=== PATIENT | male | born 1985 | race Caucasian/White ===

== ENCOUNTER → 2017-12-19 09:06 | Outpatient (CLI) | payer MEDICAID, SELFPAY ==
[2017-12-19 13:39] LABS: Absolute Lymphocyte Count 1.72 X10^3/ul (0.83-4.51); Absolute Neutrophil Count 2.6 X10^3/uL (2.0-7.7); Basophil# 0.02 X10^3/uL; Basophil% 0.4 % (0-1); Eosinophil# 0.18 X10^3/uL; Eosinophils% 3.8 % (0-5); Hematocrit 47.8 % (40-54); Hemoglobin 16.1 g/dl (13.0-16.5); Lymphocyte # 1.72 X10^3/ul (4.0); Lymphocyte % 36.7 % (19-41); Mean Corp Hgb Conc 33.7 g/gl (32-36); Mean Corpuscular Hgb 29.5 pg (27.0-32.0); Mean Corpuscular Volume 87.5 fL (80-94); Mean Platelet Vol. 11.7 fl (6.2-12.0); Monocyte# 0.21 X10^3/uL; Monocyte% 4.5 % (0-10); Neutrophil # 2.55 X10^3/uL (2.7-7.7); Neutrophil % 54.4 % (47-70); Platelet Count 229 K/mm3 (150-450); RBC Distribution Width CV 12.9 % (11.6-14.6); RBC Distribution Width SD 40.7 fl (35.1-43.9); Red Blood Count 5.46 M/mm3 (4.6-6.2); White Blood Count 4.7 K/mm3 (4.4-11.0)
[2017-12-19 13:43] LABS: POSITIVE COUNT NO; POSITIVE DIFFERENTIAL NO; POSITIVE MORPHOLOGY NO
[2017-12-19 14:01] LABS: AST(SGOT) 23 U/L (15-37); Alanine Aminotransfer ALT/SGPT 52 U/L (16-61); Albumin, Serum 3.9 g/dL (3.2-5.0); Alkaline Phosphatase 79 U/L (45-117); Anion Gap 8 (5-15); BUN 17 mg/dL (7-18); BUN/Creat Ratio 24.5 RATIO (10-20); Calcium,Total 8.9 mg/dL (8.5-10.1); Chloride 101 mmol/L (98-107); Creatinine, Serum 0.69 mg/dL (0.70-1.30); EST Glomerular Filtration Rate 142 mL/min (>60); Est Glom Filt Rate - Afr Amer 171 mL/min (>60); Globulin 3.9 g/dL (2.2-4.2); Glucose 101 mg/dL (74-106); Potassium 3.9 mmol/L (3.5-5.1); Protein, Total 7.8 g/dL (6.4-8.2); Sodium Level 137 mmol/L (136-145); Thyroid Stim Hormone (TSH) 2.24 uIU/mL (0.358-3.74)
== END ==
PROVIDERS: Visit Provider Family Medicine Geriatric Medicine
DX: R53.83 Other fatigue (principal)
CPT/HCPCS: 36415; 80053; 84443; 85025

== ENCOUNTER 2018-01-03 06:48 | Day surgery (SDC) | payer MEDICAID, SELFPAY ==
--- NOTE | 2018-01-03 | IMM_PTH ---
PATIENT: AMITA DANIELS LOC: EN U#:[id number] AGE/SX: 32/M ROOM: RE01/03/[address]: Dr. Tank Casey MD : 1985 BED: DIS: 01/03/2018 SPEC #: [id number] RECD: 01/15/18 10:40 STATUS: NILSA RERojelio #: [id number] KAILA: 01/03/18 00:[address]: Tank Casey DEPT: IMMUNOHISTOCHEMISTRY RECD BY: Alondra Marquez ENTERED: 01/15/18 10:41 SP TYPE: IMMUNO OTHR DR: Dr. Lester Jose MD Tissues: A - Stomach, NOS Procedures: H Pylori (initial) PHYSICIAN & INSTITUTION [place] [address] SPECIMEN INFORMATION: Tissue Source: A ? Gastric antrum Clinical Info: GERD Specimen Number: [id number] CPT code: 60645 METHODOLOGY: Deparaffinized sections of prefer/formalin-fixed tissue or PAP/DQ stained slides are incubated with monoclonal/polyclonal antibodies/oligonucleotide probes. Localization is made via biotin free immunoperoxidase method. Appropriate controls are performed and reacted as expected. Results on target cell population are indicated in the following table: RESULTS: ANTIBODY / CLONE RESULT Block A H Pylori (polyclonal) negative These tests were developed and their performance characteristics determined by [facility]. They may not have been cleared or approved by the U.S. Food and Drug Administration. The FDA has determined that such clearance or approval is not necessary. INTERPRETATION: A. Gastric antrum, biopsy: Negative for Helicobacter pylori organisms. AM:bandar 01/15/18
[2018-01-03 07:03] VITALS: BP 141/65; PULSE 66; RESP 18; TEMP 36.4; O2SAT 99; BMI 27.4
--- NOTE | 2018-01-03 08:16 | GASB_PTH ---
PATIENT: AMITA DANIELS LOC: EN U#:[id number] AGE/SX: 32/M ROOM: RE01/03/[address]: Dr. Tank Casey MD : 1985 BED: DIS: 01/03/2018 SPEC #: [id number] RECD: 01/03/18 11:32 STATUS: NILSA DONNELL #: [id number] KAILA: 01/03/18 08:[address]: Tank Casey DEPT: SURGICAL PATHOLOGY RECD BY: Trae Romeo ENTERED: 01/03/18 11:33 SP TYPE: Gastric Bx OTHR DR: Dr. Lester Jose MD Tissues: A - Gastric mucous membrane B - Gastric mucous membrane Procedures: Special Stain Group II Surgery Specimen Level IV Alcian Blue/PAS (control) HEADER OPERATION: EGD with biopsy PRE-OP DIAGNOSIS: GERD TISSUE SUBMITTED: A - Biopsy gastric antrum, H. pylori, B - Biopsy GE junction MICROSCOPIC DIAGNOSIS A. Gastric antrum, biopsy: Mild chronic gastritis. Focal intestinal metaplasia. B. 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 No evidence of dysplasia. AM:bandar 01/06/18 COMMENT A. The results of immunohistochemistry for Helicobacter pylori will be reported separately ([id number]). A & B. Alcian blue/PAS stain with matched control confirms the presence of focal intestinal metaplasia. There is no evidence of dysplasia. Case has been reviewed in consultation with Dr. Vega who concurs with the above diagnosis. IDC:[email or web address] MICROSCOPIC DESCRIPTION Slides are reviewed. GROSS DESCRIPTION A - Received in fixative is one container labeled with the patient's name and designated gastric antrum. The specimen consists of multiple irregular fragments of light yo soft tissue that in aggregate measure 0.5 x 0.5 x 0.1 cm. The specimen is totally submitted in one cassette. B - Received in fixative is one container labeled with the patient's name and designated biopsy, GE junction. The specimen consists of multiple irregular fragments of light yo soft tissue that in aggregate measure 1 x 0.3 x 0.1 cm. The specimen is totally submitted in one cassette. / NATALIIA:bandar 01/03/18 TC:3 CPT: 83341 x2, 55760 x2
[2018-01-03 08:30] VITALS: BP 113/71; BP 141/65; PULSE 77; RESP 16; TEMP 35.8; O2SAT 95
[2018-01-03 08:35] VITALS: BP 110/68; BP 141/65; PULSE 68; RESP 18; O2SAT 94
[2018-01-03 08:40] VITALS: BP 110/66; BP 141/65; PULSE 67; RESP 18; O2SAT 94
--- NOTE | 2018-01-03 08:44 | OP.PCM_ITS ---
Problem List (1) Gastroesophageal reflux disease Status: Chronic Qualifiers: Esophagitis presence: with esophagitis Report of Operation Date of Procedure: 01/03/18 Pre-Operative Diagnosis: GERD Post-Operative Diagnosis: GERD with esophagitis and shortened esophagus Surgery/Procedure Performed:: EGD with biopsies Description of Surgical Findings:: The patient had severe esophagitis. Patient also has a sliding hiatal hernia. The diaphragm was 35 cm from the incisors. The GE junction appeared to be 26 cm from the incisors. Specimen's removed: 1. Antral biopsy. 2. GE junction biopsy Description of Procedure: The major risks and benefits associated with the procedure were explained to the patient in detail. The patient verbalized understanding and agreement with the same. The patient was then placed in the left lateral decubitus position. IV sedation was started by anesthesia. The endoscope was then advanced under direct visualization over the tongue, into the esophagus , stomach and duodenum. It was slowly withdrawn and the mucosa was carefully evaluated. Duodenal mucosal abnormalities were not visualized. Antegrade and retrograde views of the stomach were normal and did not reveal ulceration. The patient's PEG tube was in good position and appeared normal surrounding it. Gastric folds were normal. A biopsy of the antrum was performed with cold forceps. The patient had a sliding hiatal hernia. The diaphragm pinched the stomach at around 35 cm. The beginning of the GE junction appeared around 26 cm. There is severe esophagitis and this was biopsied with cold forceps. 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 Careful examination of the remainder of the esophagus was normal. The scope was then withdrawn from the patient and the procedure terminated. It was well tolerated and there were no immediate complications. As the patient had clear esophagitis I did not elect to place a pH probe as originally planned. I believe the patient needs to stay on his PPI. If the family wishes to pursue surgical treatment the patient would likely need a Danial gastroplasty due to his very shortened esophagus. This would need to be done at a tertiary care center.
[2018-01-03 08:47] VITALS: BP 110/75; BP 141/65; PULSE 76; RESP 18; TEMP 35.8; O2SAT 98
[2018-01-03 09:15] VITALS: BP 141/65
== END 2018-01-03 09:30 | disposition home or self-care (01) ==
LOC: EN 06:49 → AC 06:50
PROVIDERS: Family Provider Family Medicine Geriatric Medicine; PCP Family Medicine Geriatric Medicine; Visit Provider Surgery
PROC: (CPT 43239; principal; 2018-01-03 07:30)
DX: K21.0 Gastro-esophageal reflux disease with esophagitis (principal); K22.70 Barrett's esophagus without dysplasia; K44.9 Diaphragmatic hernia without obstruction or gangrene; Q39.8 Other congenital malformations of esophagus; K29.50 Unspecified chronic gastritis without bleeding; R56.9 Unspecified convulsions; Z79.899 Other long term (current) drug therapy; Z93.1 Gastrostomy status; Z87.820 Personal history of traumatic brain injury; Z96.649 Presence of unspecified artificial hip joint
CPT/HCPCS: 43239; 88305; 88313; 88342; J7120

== ENCOUNTER → 2018-04-03 08:09 | Outpatient (CLI) | payer MEDICAID, SELFPAY ==
[2018-04-03 09:13] LABS: Absolute Lymphocyte Count 2.47 X10^3/ul (0.83-4.51); Basophil# 0.02 X10^3/uL; Basophil% 0.4 % (0-1); Eosinophil# 0.23 X10^3/uL; Eosinophils% 4.6 % (0-5); Hematocrit 47.1 % (40-54); Hemoglobin 16.3 g/dl (13.0-16.5); Lymphocyte # 2.47 X10^3/ul (4.0); Lymphocyte % 49.3 % (19-41); Mean Corp Hgb Conc 34.6 g/gl (32-36); Mean Corpuscular Hgb 29.3 pg (27.0-32.0); Mean Corpuscular Volume 84.6 fL (80-94); Mean Platelet Vol. 12.1 fl (6.2-12.0); Monocyte# 0.26 X10^3/uL; Monocyte% 5.2 % (0-10); Neutrophil # 2.02 X10^3/uL (2.7-7.7); Neutrophil % 40.3 % (47-70); Platelet Count 209 K/mm3 (150-450); RBC Distribution Width CV 12.5 % (11.6-14.6); RBC Distribution Width SD 38.7 fl (35.1-43.9); Red Blood Count 5.57 M/mm3 (4.6-6.2)
[2018-04-03 09:17] LABS: POSITIVE COUNT NO; POSITIVE DIFFERENTIAL NO; POSITIVE MORPHOLOGY NO
[2018-04-03 09:27] LABS: AST(SGOT) 24 U/L (15-37); Alanine Aminotransfer ALT/SGPT 47 U/L (16-61); Alkaline Phosphatase 76 U/L (45-117); Anion Gap 7 (5-15); BUN 19 mg/dL (7-18); BUN/Creat Ratio 26.5 RATIO (10-20); Calcium,Total 9.3 mg/dL (8.5-10.1); Chloride 106 mmol/L (98-107); Creatinine, Serum 0.72 mg/dL (0.70-1.30); EST Glomerular Filtration Rate 136 mL/min (>60); Est Glom Filt Rate - Afr Amer 165 mL/min (>60); Globulin 3.9 g/dL (2.2-4.2); Glucose 82 mg/dL (74-106); Potassium 4.3 mmol/L (3.5-5.1); Protein, Total 7.9 g/dL (6.4-8.2); Sodium Level 142 mmol/L (136-145)
[2018-04-06 10:28] LABS: Lamotrigine (Lamictal) Level 4.6 ug/mL (2.0-20.0)
== END ==
PROVIDERS: Family Provider Family Medicine Geriatric Medicine; PCP Family Medicine Geriatric Medicine; Visit Provider Psychiatry & Neurology Neurology
DX: G40.319 Generalized idiopathic epilepsy and epileptic syndromes, intractable, without status epilepticus (principal)
CPT/HCPCS: 36415; 80053; 82542; 85025

== ENCOUNTER → 2018-04-16 09:28 | Outpatient (CLI) | payer MEDICAID, SELFPAY ==
[2018-04-16 10:48] LABS: Absolute Lymphocyte Count 2.16 X10^3/ul (0.83-4.51); Basophil# 0.01 X10^3/uL; Basophil% 0.2 % (0-1); Eosinophil# 0.19 X10^3/uL; Eosinophils% 4.1 % (0-5); Hemoglobin 16.2 g/dl (13.0-16.5); Lymphocyte # 2.16 X10^3/ul (4.0); Lymphocyte % 46.7 % (19-41); Mean Corp Hgb Conc 34.5 g/gl (32-36); Mean Corpuscular Hgb 29.2 pg (27.0-32.0); Mean Corpuscular Volume 84.8 fL (80-94); Mean Platelet Vol. 11.8 fl (6.2-12.0); Monocyte% 6.5 % (0-10); Neutrophil # 1.97 X10^3/uL (2.7-7.7); Neutrophil % 42.5 % (47-70); Platelet Count 220 K/mm3 (150-450); RBC Distribution Width CV 12.7 % (11.6-14.6); RBC Distribution Width SD 39.3 fl (35.1-43.9); Red Blood Count 5.54 M/mm3 (4.6-6.2); White Blood Count 4.6 K/mm3 (4.4-11.0)
[2018-04-16 10:49] LABS: POSITIVE COUNT NO; POSITIVE DIFFERENTIAL NO; POSITIVE MORPHOLOGY NO
[2018-04-16 11:10] LABS: Albumin, Serum 4.1 g/dL (3.2-5.0); Anion Gap 9 (5-15); BUN 16 mg/dL (7-18); BUN/Creat Ratio 21.5 RATIO (10-20); Calcium,Total 9.3 mg/dL (8.5-10.1); Chloride 105 mmol/L (98-107); Creatinine, Serum 0.74 mg/dL (0.70-1.30); EST Glomerular Filtration Rate 130 mL/min (>60); Est Glom Filt Rate - Afr Amer 158 mL/min (>60); Glucose 88 mg/dL (74-106); Potassium 4.1 mmol/L (3.5-5.1); Prealbumin 32.4 mg/dL (20.0-40.0); Sodium Level 142 mmol/L (136-145); Thyroid Stim Hormone (TSH) 1.79 uIU/mL (0.358-3.74)
== END ==
PROVIDERS: Family Provider Family Medicine Geriatric Medicine; PCP Family Medicine Geriatric Medicine; Visit Provider Family Medicine Geriatric Medicine
DX: R63.4 Abnormal weight loss (principal)
CPT/HCPCS: 36415; 80048; 82040; 84134; 84443; 85025

== ENCOUNTER 2018-06-16 13:38 | Outpatient (RCR) | payer MEDICAID, SELFPAY ==
--- NOTE | 2018-06-16 14:55 | HP.PTEVAL ---
Patient's Visit Information JAKE DANIELS is a 33 year old M referred to Physical Therapy by Lester Jose with a diagnosis of TBI. Date of Evaluation: 06/16/18 Physical Therapist: Yumiko Whittington - Subjective Subjective: Patient is currently in a chair that is 5 years old- The chair is wearing out and they are piecing things together and is just not safe in the current chair. Has been in a w/c since he was 4 years ago- medical diagnosis of TBI. Lives with family- 2 story home but is only on the single story- ramp to get in/out. Transfers are done through tracts in the ceiling (bathroom, bedroom, living room). Does not help with transfers dependent assist. 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 Transportation with a ramp in van. Sleeps on a mat on the floor in the living room- starts on his side and sits up/tall kneel depending on how his acid reflux is. 2-3 hours in the chair and then on the mat on the floor. The lift can get low enough to get him on the floor. Fully dependent on mother for ADL's. Goes to the workshop saturday through Saturday. Had a sore on his heel when he was 14- Shifts a lot on the mat but is unable to do that in the chair. Guess that he is 5'4- and weighs 118 lbs. Mother feeds him and he has a G-tube. Can be aggressive- needs to be strapped into his seat. Hard to read pain so mother is unsure if he has pain. PMHx: seizures, hip dysplasia 14 years old. Meds: no changes since last. - Objective Jake is a 33 year male referred to PT by for w/c positioning evaluation. Jake attends today with his mother who is his primary caregiver. Jake is currently in a tilt in space w/c that is not meeting his current needs. While seated in the chair Jake has poor posture- forward head and is shoving right hand into his mouth using her left hand. ROM: Ankle: AFO's Knee: flexion contracture approx 40 degrees. Hip: flexion contracture approx 70 degrees. Core: fair, Right UE: does not use/raise- elbow flexion: WFL extn: 40 degrees from neutral. Left UE full mobility. Cervical Spine: full mobility. He is unable to obtain and maintain sitting position without max A from caregiver/PT. Hips are spaced in chair with adductor padding and legs are secured with LE supports. Jake is unable to weight shift without max A from caregivers or dependent on lift system. Jake does not ambulate and wears AFO bilateral LE and right elbow extension brace. Strength: LE: 2+/5 throughout Shoulder: Left: 4+/5, Right: 2+/5 - Goals Goal 1:: Patient to obtain a proper fitted w/c - Rehabilitation Potential Physical Therapy Diagnosis: Patient presents with hypomobility - Anticipated Interventions Thank you for the opportunity to evaluate your patient. For Medicare and Medicare HMO plans, please review the plan of care and approve it. It will need to be FAXED BACK to us at [phone] for Medicare purposes. Please let me know if there are questions or concerns regarding this plan of care. Physician Signature: Date:
--- NOTE | 2018-07-29 10:17 | HP.PT.NRP ---
HP - Discharge Summary (1) - Patient Information AMITA DANIELS was seen in my office for initial evaluation on 06/16/18. The following Plan of Care was established for this patient: This patient was last seen in our office . Pertinent comments regarding their Physical therapy will appear below: At this point I will be discontinuing this patient from physical therapy. I would be happy to see this patient again in the future if found appropriate by the physician. Thank you! Yumiko Whittington
== END 2018-06-16 19:00 | disposition home or self-care (01) ==
LOC: PT 13:38
PROVIDERS: Family Provider Family Medicine Geriatric Medicine; PCP Family Medicine Geriatric Medicine; Visit Provider Family Medicine Geriatric Medicine
DX: S06.890D Other specified intracranial injury without loss of consciousness, subsequent encounter (principal)
CPT/HCPCS: 97162

== ENCOUNTER 2018-07-07 08:49 | Outpatient (RCR) | payer MEDICAID, SELFPAY | END 2018-07-20 23:59 | LOC: NS 08:49 | PROVIDERS: Family Provider Family Medicine Geriatric Medicine; PCP Family Medicine Geriatric Medicine; Visit Provider Family Medicine Geriatric Medicine | DX: K29.70 Gastritis, unspecified, without bleeding (principal); S06.890A Other specified intracranial injury without loss of consciousness, initial encounter | CPT/HCPCS: 97802 ==

== ENCOUNTER 2018-08-06 13:19 | Outpatient (RCR) | payer MEDICAID, SELFPAY | END 2018-08-20 23:59 | LOC: NS 13:19 | PROVIDERS: Family Provider Family Medicine Geriatric Medicine; PCP Family Medicine Geriatric Medicine; Visit Provider Family Medicine Geriatric Medicine | DX: K29.70 Gastritis, unspecified, without bleeding (principal); S06.890A Other specified intracranial injury without loss of consciousness, initial encounter; Z71.3 Dietary counseling and surveillance | CPT/HCPCS: 97803 ==

== ENCOUNTER 2018-09-26 11:13 | Outpatient (RCR) | payer MEDICAID, SELFPAY | END 2018-10-20 23:59 | LOC: NS 11:13 | PROVIDERS: Family Provider Family Medicine Geriatric Medicine; PCP Family Medicine Geriatric Medicine; Visit Provider Family Medicine Geriatric Medicine | DX: K29.70 Gastritis, unspecified, without bleeding (principal); S06.890A Other specified intracranial injury without loss of consciousness, initial encounter; Z71.3 Dietary counseling and surveillance | CPT/HCPCS: 97803 ==

== ENCOUNTER 2018-12-15 13:30 | Outpatient (RCR) | payer MEDICAID, SELFPAY | END 2018-12-18 23:59 | LOC: NS 13:30 | PROVIDERS: Family Provider Family Medicine Geriatric Medicine; PCP Family Medicine Geriatric Medicine; Visit Provider Family Medicine Geriatric Medicine | DX: K29.70 Gastritis, unspecified, without bleeding (principal); S06.890A Other specified intracranial injury without loss of consciousness, initial encounter; Z71.3 Dietary counseling and surveillance | CPT/HCPCS: 97803 ==

== ENCOUNTER 2019-01-16 09:53 | Day surgery (SDC) | payer MEDICAID, SELFPAY ==
[2019-01-16] VITALS (7 sets, daily range): BP systolic 90–127; BP diastolic 59–83; PULSE 61–91; RESP 16–18; TEMP 36.3–36.5; O2SAT 95–100; BMI 21.8
--- NOTE | 2019-01-16 | GASB_PTH ---
PATIENT: AMITA DANIELS LOC: EN U#:[id number] AGE/SX: 33/M ROOM: RE01/16/[address]: Dr. Tank Casey MD : 1985 BED: DIS: 01/16/2019 SPEC #: [id number] RECD: 01/16/19 14:25 STATUS: NILSA DONNELL #: [id number] KAILA: 01/16/19 00:[address]: Tank Casey DEPT: SURGICAL PATHOLOGY RECD BY: Trae Romeo ENTERED: 01/16/19 14:25 SP TYPE: Gastric Bx OTHR DR: Dr. Lester Jose MD Tissues: Gastric mucous membrane Procedures: Surgery Specimen Level IV HEADER OPERATION: EGD ([facility] [place]) PRE-OP DIAGNOSIS: Mistry's TISSUE SUBMITTED: GE junction biopsy MICROSCOPIC DIAGNOSIS Gastroesophageal junction, biopsy: Intestinal metaplasia consistent with Mistry's esophagus. No evidence of dysplasia. Mild chronic inflammation. See comment. AM:bandar 01/19/19 COMMENT Alcian blue/PAS stain with matched control supports the above diagnosis. Immunohistochemistry ([id number]) supports the above diagnosis. MICROSCOPIC DESCRIPTION Slides are reviewed. GROSS DESCRIPTION Received in fixative is one container labeled with the patient's name and designated GE junction biopsy. The specimen consists of multiple irregular fragments of light yo soft tissue that in aggregate measure 1 x 0.3 x 0.1 cm. The specimen is totally submitted in one cassette. / SJ:bandar 01/16/19 TC:3 CPT: 49529
--- NOTE | 2019-01-16 | IMM_PTH ---
PATIENT: AMITA DANIELS LOC: EN U#:[id number] AGE/SX: 33/M ROOM: RE01/16/[address]: Dr. Tank Casey MD : 1985 BED: DIS: 01/16/2019 SPEC #: [id number] RECD: 01/19/19 12:54 STATUS: NILSA RERojelio #: [id number] KAILA: 01/16/19 00:[address]: Tank Casey DEPT: IMMUNOHISTOCHEMISTRY RECD BY: Alondra Marquez ENTERED: 01/19/19 12:56 SP TYPE: IMMUNO OTHR DR: Dr. Lester Jose MD Tissues: Gastric mucous membrane Procedures: P53 (initial) PHYSICIAN & INSTITUTION [place] [id number] SPECIMEN INFORMATION: Tissue Source: GE junction biopsy Clinical Info: Mistry's Specimen Number: [id number] CPT code: 93214 METHODOLOGY: Deparaffinized sections of prefer/formalin-fixed tissue or PAP/DQ stained slides are incubated with monoclonal/polyclonal antibodies/oligonucleotide probes. Localization is made via biotin free immunoperoxidase method. Appropriate controls are performed and reacted as expected. Results on target cell population are indicated in the following table: RESULTS: ANTIBODY / CLONE RESULT P53 (DO-7) negative These tests were developed and their performance characteristics determined by [facility]. They may not have been cleared or approved by the U.S. Food and Drug Administration. The FDA has determined that such clearance or approval is not necessary. INTERPRETATION: Gastroesophageal junction, biopsy: No evidence of dysplasia. AM:bandar 01/20/19
--- NOTE | 2019-01-16 12:14 | OP.ENDO_ITS ---
01/16/2019 Lester Jose MD [address] [place] [address] Re : Upper GI endoscopy procedure for Jake Delcid Dear Dr. Jose This procedure was performed on Wednesday, January 16, 2019. My impressions and recommendations are as follows: Impressions : - Mistry's esophagus. Biopsied. - 10 cm hiatal hernia. - Z-line regular, 27 cm from the incisors. - The examination was otherwise normal. Recommendations : - Discharge patient to home. - Resume previous diet. - Continue present medications. - Await pathology results. - Repeat upper endoscopy in 3 years for surveillance. My findings are described in the full procedure note, which is enclosed. If I can be of further assistance, please feel free to contact me at Doctor phone number(s): , Work: . Sincerely, Tank Casey MD 01/16/2019 12:13:30 PM This report has been signed electronically.
== END 2019-01-16 13:30 | disposition home or self-care (01) ==
LOC: EN 09:54 → AC 09:55
PROVIDERS: Family Provider Family Medicine Geriatric Medicine; PCP Family Medicine Geriatric Medicine; Referring Provider Surgery; Visit Provider Surgery
PROC: 0DJ08ZZ Inspection of Upper Intestinal Tract, Via Natural or Artificial Opening Endoscopic (ICD-10-PCS; CPT 43235; principal; 2019-01-16 10:55)
DX: K22.70 Barrett's esophagus without dysplasia (principal); K44.9 Diaphragmatic hernia without obstruction or gangrene; K21.0 Gastro-esophageal reflux disease with esophagitis; R56.9 Unspecified convulsions; G80.9 Cerebral palsy, unspecified; R15.9 Full incontinence of feces; R32 Unspecified urinary incontinence; F79 Unspecified intellectual disabilities; Z79.899 Other long term (current) drug therapy; Z87.820 Personal history of traumatic brain injury
CPT/HCPCS: 43239; 88305; 88342; J7120

== ENCOUNTER 2019-01-27 14:38 | Outpatient (RCR) | payer MEDICAID, SELFPAY ==
--- NOTE | 2018-12-24 08:36 | NS ---
12/24/18 Phone f/u w/MomYaent On 12/19/18 Mom called me reporting family had decided to stop 2nd IsoSource 1.5 250 mL feeding provided at [facility] - siting that increased urination requiring change of clothing twice daily was more than what family was willing to manage. Mom reportedly had discussed with nurses at [facility] and all felt Jake had regained desired weight with 3 feedings of IsoSource 1.5 totalling 700 cc/day (providing 1050 calories and 47.6 g protein plus oral feeds providing ~ 400 calories and 10 grams protein). Today, I discussed same feeding situation with Mom noting that protein and perhaps vitamins and minerals may be suboptimal for Jake. I encouraged Mom to increase dietary protein to 20 grams/day - discussed options of securing whey protein powder at local pharmacy and add 1 scoop each feeding to pureed oral feeds or be sure each feeding includes 1-1 1/2 [address]. protein. RDN also suggested consideration of liquid MVM to be given via g-tube. RDN also reminded Mom to increase water flushes to 300 cc/feeding. Changed feeding schedule will provide ~ 1500 leticia/day and 58-65 grams protein/day and `1400 CC WATER/day. Will follow in 2 weeks with in office visit, pending family not cancelling appt. Brenda Duron, GERDA,LD,CDE
[2019-01-16 10:10] VITALS: BMI 21.8
== END 2019-01-27 23:59 | disposition home or self-care (01) ==
LOC: NS 14:38
PROVIDERS: Family Provider Family Medicine Geriatric Medicine; PCP Family Medicine Geriatric Medicine; Visit Provider Family Medicine Geriatric Medicine
DX: K29.70 Gastritis, unspecified, without bleeding (principal); S06.890A Other specified intracranial injury without loss of consciousness, initial encounter; Z71.3 Dietary counseling and surveillance
CPT/HCPCS: 97803

== ENCOUNTER → 2019-12-28 11:50 | Outpatient (CLI) | payer MEDICAID, SELFPAY ==
[2019-01-16 10:10] VITALS: BMI 21.8
[2019-12-28 12:22] LABS: Absolute Lymphocyte Count 1.74 X10^3/uL (0.83-4.51); Absolute Neutrophil Count 2.7 X10^3/uL (2.0-7.7); Basophil# 0.03 X10^3/uL; Basophil% 0.6 % (0-1); Eosinophil# 0.12 X10^3/uL; Eosinophils% 2.4 % (0-5); Hematocrit 47.1 % (40-54); Hemoglobin 15.6 g/dL (13.0-16.5); Lymphocyte # 1.74 X10^3/ul (4.0); Lymphocyte % 35.5 % (19-41); Mean Corp Hgb Conc 33.1 g/dL (32-36); Mean Corpuscular Hgb 28.5 pg (27.0-32.0); Mean Corpuscular Volume 86.1 fL (80-94); Mean Platelet Vol. 13.2 fl (6.2-12.0); Monocyte# 0.32 X10^3/uL; Monocyte% 6.5 % (0-10); NRBC Flagged by Analyzer 0 % (0-5); Neutrophil # 2.68 X10^3/uL (2.7-7.7); Neutrophil % 54.8 % (47-70); Platelet Count 190 K/mm3 (150-450); RBC Distribution Width CV 12.6 % (11.6-14.6); RBC Distribution Width SD 39.4 fl (35.1-43.9); Red Blood Count 5.47 M/mm3 (4.6-6.2); White Blood Count 4.9 K/mm3 (4.4-11.0)
[2019-12-28 12:47] LABS: ALB/GLOB Ratio 1.1 RATIO (0.9-2.4); AST(SGOT) 33 U/L (15-37); Alanine Aminotransfer ALT/SGPT 76 U/L (16-61); Alkaline Phosphatase 81 U/L (45-117); Anion Gap 8 (5-15); BUN 18 mg/dL (7-18); BUN/Creat Ratio 26.2 RATIO (10-20); Chloride 104 mmol/L (98-107); Creatinine, Serum 0.69 mg/dL (0.70-1.30); EST Glomerular Filtration Rate 141 mL/min (>60); Est Glom Filt Rate - Afr Amer 171 mL/min (>60); Globulin 3.7 g/dL (2.2-4.2); Glucose 117 mg/dL (74-106); Potassium 3.9 mmol/L (3.5-5.1); Protein, Total 7.7 g/dL (6.4-8.2); Sodium Level 141 mmol/L (136-145); Thyroid Stim Hormone (TSH) 2.56 uIU/mL (0.358-3.74)
== END ==
PROVIDERS: PCP Family Medicine Geriatric Medicine; Visit Provider Family Medicine Geriatric Medicine
DX: R53.83 Other fatigue (principal)
CPT/HCPCS: 36415; 80053; 84443; 85025

== ENCOUNTER 2020-11-24 08:26 | Emergency (ER) | payer MEDICAID, SELFPAY ==
[2019-01-16 10:10] VITALS: BMI 21.8
[2020-11-24 08:27] VITALS: BP 116/87; PULSE 88; RESP 18; TEMP 35.9; O2SAT 96; BMI 22.3
--- NOTE | 2020-11-24 08:42 | ED.VIS.GEN ---
History of Present Illness Chief Complaint: Other, Pain/Inj Narrative: Patient pulled his G-tube overnight and mom was unable to replace it. He has a history of this, he has had the same tract for over 30 years per mom. 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 Otherwise patient has been acting himself. Past medical history: MRDD Medications: Reviewed Social history: Lives at home, family takes care of him. Review of systems: All systems negative except as indicated General: No reported fevers ENT: No recent rhinorrhea Cardiovascular: No history of cyanosis Respiratory: No breathing difficulty Gastrointestinal: G-tube being pulled out Musculoskeletal: Denies: Chronic weakness Skin: No rash Neurological: No new deficit Psych: Reports: Behavioral issues as in HPI Physical exam General: MRDD patient who does not appear in any distress Head: No signs of trauma ENT: Moist mucous membranes Neck: No lymphadenopathy Cardiovascular: Regular rate, Regular rhythm, no obvious murmur Respiratory: No distress, CTA bilaterally Abdomen: Soft, Nontender, Nondistended, intact tract without any signs of cellulitis. Extremities: Chronic contractures Skin: Normal color, No rash Past Medical History - Allergies and Home Meds Allergies/Adverse Reactions: Allergies No Known Allergies Allergy (Verified 11/24/20 08:27) Primary Care Physician: Lester Jose Chi, MD [Primary Care Provider] - Surgical History: Vagal nerve stimulator, hip dysplasia surgery Smoking Status: Never smoker Physical Exam Vital Signs/Narrative: Vital Signs Temp Pulse Resp BP Pulse Ox 11/24/20 08:27 96.7 F L 88 18 116/87 H 96 Diagnostic/Tx/Re-eval - Medical Decision Making Procedure note: G-tube replacement Consent was verbal via mother. Site was prepped with alcohol swab Per mother preference patient's own G-tube was used which appeared clean and intact. This was inserted with no significant difficulty by emergency doctor. I inflated the balloon with 7 mL of saline. Patient tolerated procedure well. No complications. At this time patient will be discharged in stable condition. ED Disposition - Plan for ED Patient: Disposition: Home or Assisted Living Diagnosis: Gastrointestinal tube present Referrals: Lester Jose Chi, MD [Primary Care Provider] - 3-5 Days Additional Instructions: Make sure that the balloon stays inflated. Any new problems follow-up in the ED however he should have a surgical consult soon to make sure there is no new problems with the G-tube.
== END 2020-11-24 09:00 | disposition home or self-care (01) ==
LOC: ED 09:02
PROVIDERS: Emergency Provider Emergency Medicine; PCP Family Medicine Geriatric Medicine
DX: Z43.1 Encounter for attention to gastrostomy (principal); F79 Unspecified intellectual disabilities
CPT/HCPCS: 43762; A4216

== ENCOUNTER → 2021-04-11 09:38 | Outpatient (CLI) | payer MEDICAID, SELFPAY ==
[2021-04-11 18:02] LABS: Absolute Lymphocyte Count 2.18 X10^3/uL (0.83-4.51); Absolute Neutrophil Count 3.3 X10^3/uL (2.0-7.7); Basophil# 0.03 X10^3/uL; Basophil% 0.5 % (0-1); Eosinophils% 1.7 % (0-5); Hematocrit 48.5 % (40-54); Hemoglobin 16.1 g/dL (13.0-16.5); Lymphocyte # 2.18 X10^3/ul (0.83-4.51); Lymphocyte % 36.5 % (19-41); Mean Corp Hgb Conc 33.2 g/dL (32-36); Mean Corpuscular Hgb 28.3 pg (27.0-32.0); Mean Corpuscular Volume 85.4 fL (80-94); Mean Platelet Vol. 12.6 fl (6.2-12.0); Monocyte# 0.39 X10^3/uL; Monocyte% 6.5 % (0-10); NRBC Flagged by Analyzer 0 % (0-5); Neutrophil # 3.25 X10^3/uL (2.7-7.7); Neutrophil % 54.5 % (47-70); Platelet Count 230 K/mm3 (150-450); RBC Distribution Width CV 12.4 % (11.6-14.6); RBC Distribution Width SD 38.7 fl (35.1-43.9); Red Blood Count 5.68 M/mm3 (4.6-6.2)
[2021-04-11 18:22] LABS: ALB/GLOB Ratio 1.1 RATIO (0.9-2.4); AST(SGOT) 28 U/L (15-37); Alanine Aminotransfer ALT/SGPT 64 U/L (16-61); Alkaline Phosphatase 70 U/L (45-117); Anion Gap 6 (5-15); BUN 13 mg/dL (7-18); Calcium,Total 8.8 mg/dL (8.5-10.1); Chloride 106 mmol/L (98-107); Creatinine, Serum 0.69 mg/dL (0.70-1.30); EST Glomerular Filtration Rate 140 mL/min (>60); Est Glom Filt Rate - Afr Amer 170 mL/min (>60); Globulin 3.6 g/dL (2.2-4.2); Glucose 109 mg/dL (74-106); Potassium 3.8 mmol/L (3.5-5.1); Protein, Total 7.6 g/dL (6.4-8.2); Sodium Level 141 mmol/L (136-145); Thyroid Stim Hormone (TSH) 3.07 uIU/mL (0.358-3.74)
== END ==
PROVIDERS: PCP Family Medicine Geriatric Medicine; Referring Provider Family Medicine Geriatric Medicine; Visit Provider Family Medicine Geriatric Medicine
DX: R53.83 Other fatigue (principal)
CPT/HCPCS: 36415; 80053; 84443; 85025

== ENCOUNTER 2021-12-29 09:18 | Day surgery (SDC) | payer MEDICAID, SELFPAY ==
[2021-12-29] VITALS (8 sets, daily range): BP systolic 91–115; BP diastolic 66–95; PULSE 60–86; RESP 16; TEMP 36.2–36.9; O2SAT 92–95; BMI 22.3
--- NOTE | 2021-12-29 | IMM_PTH ---
PATIENT: AMITA DANIELS LOC: EN U#:[id number] AGE/SX: 36/M ROOM: RE12/29/[address]: Dr. Tank Casey MD : 1985 BED: DIS: 12/29/2021 SPEC #: [id number] RECD: 01/01/22 12:16 STATUS: NILSA DONNELL #: [id number] KAILA: 12/29/21 00:[address]: Tank Casey DEPT: IMMUNOHISTOCHEMISTRY RECD BY: Alondra Marquez ENTERED: 01/01/22 12:17 SP TYPE: IMMUNO OTHR DR: Dr. Lester Jose MD Tissues: Gastrointestinal mucous membrane, NOS Procedures: P53 (initial) KI-67 (add) PHYSICIAN & [place] [id number] SPECIMEN INFORMATION: Tissue Source: GE junction biopsy Clinical Info: Mistry?s esophagus Specimen Number: [id number] CPT code: 47879, 09682 METHODOLOGY: Deparaffinized sections of prefer/formalin-fixed tissue or PAP/DQ stained slides are incubated with monoclonal/polyclonal antibodies/oligonucleotide probes. Localization is made via biotin free immunoperoxidase method. Appropriate controls are performed and reacted as expected. Results on target cell population are indicated in the following table: RESULTS: ANTIBODY / CLONE RESULT P53 (DO-7) negative Ki-67 (30-9) positive, low These tests were developed and their performance characteristics determined by [facility]. They may not have been cleared or approved by the U.S. Food and Drug Administration. The FDA has determined that such clearance or approval is not necessary. The above immunohistochemical/dualISH markers are ordered and reviewed by the Pathologist. INTERPRETATION: Gastroesophageal junction, biopsy: No evidence of dysplasia. AM:bandar 01/02/2022
[2021-12-29] MEDS: Lactated Ringers 1,000 ML 15 ML IV (10:04)
--- NOTE | 2021-12-29 11:00 | EGD_PTH ---
PATIENT: AMITA DANIELS LOC: EN U#:[id number] AGE/SX: 36/M ROOM: RE12/29/[address]: Dr. Tank Casey MD : 1985 BED: DIS: 12/29/2021 SPEC #: [id number] RECD: 12/29/21 12:28 STATUS: NILSA MENDESRojelio #: [id number] KAILA: 12/29/21 11:[address]: Tank Casey DEPT: SURGICAL PATHOLOGY RECD BY: Trae Romeo ENTERED: 12/29/21 13:42 SP TYPE: EGD BIOPSY OT DR: Dr. Lester Jose MD Tissues: Stomach, NOS Procedures: Special Stain Group II Surgery Specimen Level IV Alcian Blue/PAS (control) HEADER OPERATION: EGD ([facility] [place]) PRE-OP DIAGNOSIS: Mistry?s esophagus TISSUE SUBMITTED: GE junction biopsy MICROSCOPIC DIAGNOSIS GE junction, biopsy: Fragments of gastroesophageal mucosa with extensive intestinal (goblet cell metaplasia) consistent with Mistry?s esophagus. Mild chronic inflammation. Negative for dysplasia. See comment. NATALIIA:bandar 01/01/2022 COMMENT Alcian blue/PAS stain with matched control is used in the evaluation of the specimen. Immunohistochemistry ([id number]) for P53 and Ki-67 will be performed and results will be reported separately. MICROSCOPIC DESCRIPTION Slides are reviewed. GROSS DESCRIPTION Received in fixative is one container labeled with the patient's name and designated GE junction biopsy. The specimen consists of multiple irregular fragments of light yo soft tissue that in aggregate measure 1.5 x 0.3 x 0.1 cm. The specimen is totally submitted in one cassette. / NATALIIA:bandar 12/29/2021 TC:5 CPT: 25958, 44546
--- NOTE | 2021-12-29 11:00 | PCM.HP.BLA ---
History and Physical Date of Admission: 12/29/21 Intake Vital Signs 12/21/21 08:50 Weight: 130 lb BP 111/79 Pulse 83 Pulse Source Monitor Intake Visit Reasons: REPEAT EGD 3 YEARS Allergies No Known Allergies Allergy (Verified 12/21/21 08:54) Medications baclofen 10 mg PO DAILY 11/04/13 [History Confirmed 12/21/21] polyethylene glycol 3350 17 g PO DAILY 11/04/13 [History Confirmed 12/21/21] sodium phosphates 133 ml RC QODAY 11/04/13 [History Confirmed 12/21/21] lamotrigine 100 mg tablet 100 mg PO BID 12/23/17 [History Confirmed 12/21/21] cholecalciferol (vitamin D3) 1,000 unit PO DAILY 12/26/17 [History Confirmed 12/21/21] omeprazole 20 mg capsule,delayed release 40 mg PO DAILY cap 01/01/19 [History Confirmed 12/21/21] PFSH Medical History Bowel and bladder incontinence Gastroesophageal reflux disease Immobility Mental retardation Seizure Seizures TBI (traumatic brain injury) Surgical History H/O tooth extraction Hip joint replacement by other means S/P placement of VNS (vagus nerve stimulation) device Family History Father CVA (cerebral vascular accident) Social History Smoking Status: Never smoker alcohol intake: never HPI HPI HPI: AMITA DANIELS, is a 36 M who presents to the office today for follow-up. The patient had his last EGD which did show Mistry's with no dysplasia. He is here to schedule a repeat surveillance EGD. ROS General General: No weight change, appetite, fatigue, colon cancer, breast cancer or weakness HEENT HEENT: Yes difficulty swallowing and eye surgery; No eye injury, swollen glands or hoarseness Endo Endocrine: No thyroid disease, diabetes mellitus, thyroid cancer, Hair loss, heat intolerance or cold intolerance Skin Skin: No rash or changing moles Musc Musculoskeletal: No back problems, arthritis, rheumatoid arthritis, gout or joint pain Cardio Cardiovascular: No murmur, pacemaker, heart disease, atrial fibrillation, high blood pressure, heart attack, heart stent, palpitations, shortness of breat with exertion or chest pain Psych Psychiatric: No depression, anxiety or hearing voices Resp Respiratory: No shortness of breath, No sleep apnea, No cough, No COPD, No asthma, No emphysema and No wheezing Gastro Gastrointestinal: No abdominal pain, No nausea or vomiting, No diarrhea, No constipation, No blood in stool, Yes acid reflux, No hemorrhoids, No ulcers, No gallbladder problem and No black,tarry stools Bryan Hematologic: No blood thinners, No blood disorders, No bleeding, No anemia and No blood clots Neuro Neurologic: No system reviewed and no additional complaints, except as documented, No as per HPI, No abnormal gait, No abnormal hearing, No abnormal movements, No abnormal speech, No behavioral changes, No burning sensations, No confusion, No convulsions, No disequilibrium, No dizziness, No localized weakness, No frequent falls, No headache(s), No lack of coordination, No loss of vision, No memory loss, No numbness, No other visual disturbances, No radicular pain, No restless legs, No sensory deficit, No syncope, No tingling, No tremor(s), No weakness and No other Exam Const General: cooperative Orientation: alert and oriented x3 HENMT Head: normal to inspection Neck Neck: normal visual inspection and full ROM Chest Chest palpation & inspection: normal inspection of the chest Resp Effort & Inspection: normal respiratory effort Auscultation: clear to auscultation bilaterally Cardio Rate: regular rate Rhythm: regular rhythm GI Inspection: non-distended Palpation: soft and nontender Skin General: no rashes or lesions noted Neuro General: patient alert and patient oriented x3 Extrem General: full ROM Psych Appearance: grossly normal Mental Status: mental status grossly normal Assessment and Plan Assessment and Plan (1) Barretts esophagus: Status: Acute Qualifiers: Mistry's esophagus type: without dysplasia Qualified Code(s): K22.70 - Mistry's esophagus without dysplasia Plan - Dr. Tank Casey MD: Patient will be scheduled for surveillance EGD to evaluate for any dysplasia associated with the Mistry's esophagus. I explained endoscopy in detail to the patient. I explained the risks including but not limited to stroke or heart attack with anesthesia, perforation of the GI tract, bleeding, infection. I explained that any of these could necessitate further emergency surgery. The patient understands and all questions were answered sufficiently. The patient wishes to proceed with procedure. Tank Casey MD Pager: [phone] [address] [place] [address] [address] [place] [id number] Office: I have re-examined the patient. There are no clinical changes since date of exam.
--- NOTE | 2021-12-29 11:22 | OP.CCLET_ITS ---
12/29/2021 Lester Jose MD [address] [place] [address] Re : Upper GI endoscopy procedure for Jake Delcid Dear Dr. Jose This procedure was performed on Wednesday, December 29, 2021. My impressions and recommendations are as follows: Impressions : - Esophageal mucosal changes secondary to established long-segment Mistry's disease. Biopsied. - Normal stomach. - Normal examined duodenum. Recommendations : - Discharge patient to home. - Resume previous diet. - Continue present medications. - Repeat upper endoscopy in 3 years for surveillance. My findings are described in the full procedure note, which is enclosed. If I can be of further assistance, please feel free to contact me at Doctor phone number(s): , Work: . Sincerely, Tank Casey MD 12/29/2021 11:21:28 AM This report has been signed electronically.
--- NOTE | 2021-12-29 11:22 | OP.EGD_ITS ---
Patient Name: Jake Delcid Procedure Date: 12/29/2021 11:07 AM Date of : 1985 Age: 36 Procedure: Upper GI endoscopy Indications: Surveillance for malignancy due to personal history of Mistry's esophagus Providers: Tank Casey MD Medicines: Monitored Anesthesia Care Patient Profile: This is a 36 year old male. Refer to note in patient chart for documentation of history and physical. Complications: No immediate complications. Estimated blood loss: Minimal. Procedure: Pre-Anesthesia Assessment: - Prior to the procedure, a History and Physical was performed, and patient medications and allergies were reviewed. The patient's tolerance of previous anesthesia was also reviewed. The risks and benefits of the procedure and the sedation options and risks were discussed with the patient. All questions were answered, and informed consent was obtained. Prior Anticoagulants: The patient has taken no previous anticoagulant or antiplatelet agents. After reviewing the risks and benefits, the patient was deemed in satisfactory condition to undergo the procedure. After obtaining informed consent, the endoscope was passed under direct vision. Throughout the procedure, the patient's blood pressure, pulse, and oxygen saturations were monitored continuously. The gastroscope was introduced through the mouth, and advanced to the second part of duodenum. The upper GI endoscopy was accomplished without difficulty. The patient tolerated the procedure well. Scope In: 11:13:09 AM Scope Out: 11:17:40 AM Total Procedure Duration Time 0 hours 4 minutes 31 seconds Findings: The esophagus and gastroesophageal junction were examined with white light from a forward view and retroflexed position. There were esophageal mucosal changes secondary to established long-segment Mistry's disease. These changes involved the mucosa extending to the Z-line. [place]-colored mucosa was present. Mucosa was biopsied with a cold forceps for histology in 4 quadrants at intervals of 1 cm at the gastroesophageal junction. One specimen bottle was sent to pathology. The stomach was normal. The examined duodenum was normal. Impression: - Esophageal mucosal changes secondary to established long-segment Mistry's disease. Biopsied. - Normal stomach. - Normal examined duodenum. Recommendation: - Discharge patient to home. - Resume previous diet. - Continue present medications. - Repeat upper endoscopy in 3 years for surveillance. Procedure Code(s): --- Professional --- 02216, Esophagogastroduodenoscopy, flexible, transoral; with biopsy, single or multiple Diagnosis Code(s): --- Professional --- K22.70, Mistry's esophagus without dysplasia CPT copyright 2017 [employer]. All rights reserved. The codes documented in this report are preliminary and upon combine driver review may be revised to meet current compliance requirements. Tank Casey MD 12/29/2021 11:21:28 AM This report has been signed electronically. Number of Addenda: 0 Note Initiated On: 12/29/2021 11:07 AM
== END 2021-12-29 23:59 | disposition home or self-care (01) ==
LOC: EN 09:19 → AC 09:36
PROVIDERS: PCP Family Medicine Geriatric Medicine; Referring Provider Family Medicine Geriatric Medicine; Visit Provider Surgery
PROC: 0DJ08ZZ Inspection of Upper Intestinal Tract, Via Natural or Artificial Opening Endoscopic (ICD-10-PCS; CPT 43235; principal; 2021-12-29 10:55)
DX: K22.70 Barrett's esophagus without dysplasia (principal); K21.9 Gastro-esophageal reflux disease without esophagitis; F79 Unspecified intellectual disabilities; H54.8 Legal blindness, as defined in USA; Z99.3 Dependence on wheelchair; Z87.820 Personal history of traumatic brain injury; Z20.822 Contact with and (suspected) exposure to COVID-19
CPT/HCPCS: 43239; 87426; 88305; 88313; 88341; 88342; J7120; J2405

== ENCOUNTER 2023-01-21 14:21 | Outpatient (RCR) | payer MEDICAID, SELFPAY | END 2023-02-17 23:59 | LOC: NS 14:21 | PROVIDERS: PCP Family Medicine Geriatric Medicine; Visit Provider Family Medicine Geriatric Medicine | DX: E44.0 Moderate protein-calorie malnutrition (principal) | CPT/HCPCS: 97802 ==

== ENCOUNTER → 2023-11-01 | Outpatient (CLI) | payer MEDICAID, SELFPAY ==
[2023-11-01 09:26] LABS: Hematocrit 50.2 % (40-54); Hemoglobin 16.7 g/dL (13.0-16.5); Mean Corp Hgb Conc 33.3 g/dL (32-36); Mean Corpuscular Hgb 28.2 pg (27.0-32.0); Mean Corpuscular Volume 84.7 fL (80-94); Mean Platelet Vol. 11.6 fl (6.2-12.0); Platelet Count 258 K/mm3 (150-450); RBC Distribution Width CV 12.4 % (11.6-14.6); RBC Distribution Width SD 38.2 fl (35.1-43.9); Red Blood Count 5.93 M/mm3 (4.6-6.2)
[2023-11-01 09:54] LABS: AST(SGOT) 24 U/L (15-37); Alanine Aminotransfer ALT/SGPT 57 U/L (16-61); Albumin, Serum 3.8 g/dL (3.2-5.0); Alkaline Phosphatase 76 U/L (45-117); Anion Gap 6 (5-15); BUN 16 mg/dL (7-18); BUN/Creat Ratio 22.1 RATIO (10-20); Calcium,Total 9.4 mg/dL (8.5-10.1); Chloride 107 mmol/L (98-107); Creatinine, Serum 0.72 mg/dL (0.70-1.30); EST Glomerular Filtration Rate 130 mL/min (>60); Est Glom Filt Rate - Afr Amer 157 mL/min (>60); Globulin 3.9 g/dL (2.2-4.2); Glucose 98 mg/dL (74-106); Protein, Total 7.7 g/dL (6.4-8.2); Sodium Level 141 mmol/L (136-145); Thyroid Stim Hormone (TSH) 2.74 uIU/mL (0.358-3.74)
[2023-11-01 11:42] LABS: Vitamin D,25 Hydroxy 72.7 ng/mL
== END | disposition home or self-care (01) ==
LOC: LAB 08:37
PROVIDERS: PCP Nurse Practitioner Family; Visit Provider Nurse Practitioner Family
DX: E55.9 Vitamin D deficiency, unspecified (principal); R56.1 Post traumatic seizures; K59.09 Other constipation; G93.9 Disorder of brain, unspecified
CPT/HCPCS: 36415; 80053; 82306; 84443; 85027

== ENCOUNTER 2024-09-03 13:48 | Outpatient (RCR) | payer MEDICAID, SELFPAY | END 2024-09-19 23:59 | LOC: NS 13:48 | PROVIDERS: PCP Nurse Practitioner Family | DX: Z71.3 Dietary counseling and surveillance (principal) ==

== ENCOUNTER 2024-12-22 08:50 | Day surgery (SDC) | payer MEDICAID, SELFPAY ==
[2024-12-22] VITALS (8 sets, daily range): BP systolic 120–138; BP diastolic 77–93; PULSE 58–84; RESP 14–18; TEMP 36.1–36.4; O2SAT 95–100; BMI 23.3
--- NOTE | 2024-12-22 09:51 | PRE.ANES_ITS ---
ASA Classification* ASA Classification ASA Classification: 3 Assessment & Plan Anesthesia* Anesthesia Assessment Anesthesia Assessment: Discussed sedation and/or anesthesia options, risks, benefits, and alternatives with patient/parents/legal guardian/POA. Questions invited. The patient/parents/legal guardian/POA seems to understand and agrees to proceed with anesthesia plan. Reviewed the physical assessment, medical history, allergy history and patient home medications list prior to surgery/procedure/anesthetic and documented any changes. Performed airway and anesthesia risk assessments. Anesthesia Type Anesthesia Type: MAC History Source History Obtained from:: Patient and Chart Anesthesia Focused Assessment* Temperature: 97.2 F Pulse Rate: 84 Respiratory Rate: 18 Pulse Ox: 97 Oxygen Delivery Method: Room Air Airway Assessment Mouth opens: 1 cm Mallampati Score: IV Teeth Condition: Intact Neck Range of motion (ROM): Limited ROM (Limited by cooperation) Focused Labs Anesthesia Preop lab: CBC WBC 6.0 K/mm3 (4.4-11.0) 11/01/23 08:41 11/01/23 RBC 5.93 M/mm3 (4.6-6.2) 11/01/23 08:41 11/01/23 Hgb 16.7 g/dL (13.0-16.5) H 11/01/23 08:41 4 Hct 50.2 % (40-54) 11/01/23 08:41 11/01/23 Plt Count 258 K/mm3 (150-450) 11/01/23 08:41 11/01/23 CHEMISTRY Potassium 4.0 mmol/L (3.5-5.1) 11/01/23 08:41 11/01/23 Sodium 141 mmol/L (136-145) 11/01/23 08:41 11/01/23 BUN 16 mg/dL (7-18) 11/01/23 08:41 11/01/23 Creatinine 0.72 mg/dL (0.70-1.30) 11/01/23 08:41 11/01/23 Glucose 98 mg/dL (74-106) 11/01/23 08:41 11/01/23 TSH 2.74 uIU/mL (0.358-3.74) 11/01/23 08:41 COAG Pre-Assessment Diagnosis/Proposed Procedure Planned Operative Procedure(s): EGD Anesthesia History 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 When Was Last Pacemaker Check QUESTION #4 FULL TEXT: You/Your Family Experience fever (hyperthermia) with Anesthesia Last Oral Intake Last Oral intake: Last Oral Intake NPO since 00:00 12/22/24 09:14 Meds taken in AM with sips of Yes 12/22/24 09:14 water? Meds patient instructed to lamictal 12/22/24 09:14 take am of surgery Any additional information?: Yes Meds taken in AM with sips of water?: Yes PONV PONV - aircraft electronics technical officer: PONV - aircraft electronics technical officer Female No 12/17/24 14:14 HX of Motion Sickness No 12/17/24 14:14 HX of N/V After Surgery No 12/17/24 14:14 Non-Smoker Yes 12/17/24 14:14 Duration of Surgery greater No 12/17/24 14:14 than 60 minutes Number of Risk Factors 1 12/17/24 14:14 PONV Score Low Risk 12/17/24 14:14 Height & Weight Height & Weight: Anesthesia: Height & Weight Height 5 ft 4 in 12/22/24 09:14 Weight: 61.689 kg 12/22/24 09:14 Body Mass Index (BMI) 23.3 12/22/24 09:14 Respiratory Assessment Respiratory Assessment - aircraft electronics technical officer: Respiratory Tract Infection Hx - aircraft electronics technical officer Hx Respiratory Tract Infection No 12/17/24 14:14 Any additional information?: Yes Hx Respiratory Tract Infection: Yes (Patient has a slight cough currently. No fevers.) STOP Sleep Apnea STOP Sleep Apnea - aircraft electronics technical officer: STOP Sleep Apnea - aircraft electronics technical officer Hx Hypertension No 12/17/24 14:14 Hx Sleep Apnea No 12/17/24 14:14 CPAP No 12/17/24 14:14 BIPAP No 12/17/24 14:14 Do you snore loudly (louder No 12/17/24 14:14 than talking or can be heard Do you often feel tired/ No 12/17/24 14:14 fatigued/ sleepy during daytime? Has anyone observed you stop No 12/17/24 14:14 breathing during sleep? STOP Results Negative 12/17/24 14:14 QUESTION #5 FULL TEXT : Do you snore loudly (louder than talking or can be heard through closed doors)? Tobacco Use History Tobacco Use History - aircraft electronics technical officer: Tobacco Use History - aircraft electronics technical officer Tobacco Use Smoking Status Never smoker 12/17/24 14:14 Hx Tobacco Use No 12/17/24 14:14 Years Smoking Packs Smoked per Day Smoking Cessation Date was within the last 15 years Hx Smoking Cessation Date Hx Smoking Cessation Counseling Hematologic Medial History Hematologic Hx - aircraft electronics technical officer: Hematologic Medical Hx - tubular riveter Hx of Blood Transfusion Yes 12/17/24 14:14 Hx of Transfusion in last 3 No 12/17/24 14:14 Months Date of Last Transfusion (if within last 3 months) Ever experience any problems No 12/17/24 14:14 with transfusion(s)? Specify any problems Hx of Preganancy in last 3 N/A 12/17/24 14:14 Months Nurse Filling Out Transfusion MGRIFFITH 12/17/24 14:14 & Questions: Date: 12/17/24 12/17/24 14:14 Time: 14:17 12/17/24 14:14 Patient unable to answer at this time (ie. confused, unrespo /Reproduction History /Reproductive History - aircraft electronics technical officer: /Reproductive Hx- aircraft electronics technical officer Hx Now No 12/17/24 14:14 Gestational Age (in weeks): EDC: Hx Hx Para Hx Section SAB No 12/17/24 14:14 PFSH Medical History Legally blind Uses wheelchair Bladder disease Dietary restriction Difficulty swallowing History of hiatal hernia Gastric reflux Non-smoker History of edema Seizures TBI (traumatic brain injury) Immobility Bowel and bladder incontinence Seizure Mental retardation Gastroesophageal reflux disease Home Medications ?Medication ?Instructions ?Recorded ?Last Taken ?Type baclofen 10 mg tablet 10 mg feeding tube BID 11/0412/29/21 08:00 History polyethylene glycol 3350 17 gram 17 g feeding tube GLENN LY 11/04/13 Unknown History oral powder packet sodium phosphates 19 gram-7 133 ml ME QODAY 11/04/13 U nknown History gram/118 mL enema lamotrigine 100 mg tablet 100 mg feeding tube BID 03/0712/22/24 History (Lamictal) cholecalciferol (vitamin D3) 25 1,000 unit feeding tub e DAILY 12/26/17 Unknown History mcg (1,000 unit) tablet omeprazole 20 mg capsule,delayed 40 mg PO QHS 01/01/19 Unknown History release Allergy/AdvReac Type Severity Reaction Status Date / Time No Known Allergies Allergy Verified 12/22/24 09:13 Family History Father CVA (cerebral vascular accident) Surgical History History of surgery History of esophagogastroduodenoscopy (EGD) H/O tooth extraction S/P placement of VNS (vagus nerve stimulation) device Hip joint replacement by other means Social History Smoking Status: Never smoker alcohol intake: never Review of Systems (Anesthesia) ROS Narrative System reviewed and no additional complaints, except as documented.
--- NOTE | 2024-12-22 09:58 | H&P.OPEN ---
HPI - General HPI Narrative AMITA DANIELS, is a 39 M who presents for EGD. This is a surveillance EGD that he has every 3 years for Mistry's esophagus. No new complaints [facility] Medical History Legally blind Uses wheelchair Bladder disease Dietary restriction Difficulty swallowing History of hiatal hernia Gastric reflux Non-smoker History of edema Seizures TBI (traumatic brain injury) Immobility Bowel and bladder incontinence Seizure Mental retardation Gastroesophageal reflux disease Home Medications ?Medication ?Instructions ?Recorded ?Last Taken ?Type baclofen 10 mg tablet 10 mg feeding tube BID 11/04/13 12/29/21 08:00 History polyethylene glycol 3350 17 gram 17 g feeding tube DAILY 11/04/13 Unknown History oral powder packet sodium phosphates 19 gram-7 133 ml VT QODAY 11/04/13 Unknown History gram/118 mL enema lamotrigine 100 mg tablet 100 mg feeding tube BID 12/23/17 12/22/24 History (Lamictal) cholecalciferol (vitamin D3) 25 1,000 unit feeding tube DAILY 12/26/17 Unknown History mcg (1,000 unit) tablet omeprazole 20 mg capsule,delayed 40 mg PO QHS 01/01/19 Unknown History release Allergy/AdvReac Type Severity Reaction Status Date / Time No Known Allergies Allergy Verified 12/22/24 09:13 Family History Father CVA (cerebral vascular accident) Surgical History History of surgery History of esophagogastroduodenoscopy (EGD) H/O tooth extraction S/P placement of VNS (vagus nerve stimulation) device Hip joint replacement by other means Social History Smoking Status: Never smoker alcohol intake: never Past Medical/Surgical History Planned Operation Planned Operative Procedure(s): EGD S.O.S: No Previous Hospitalizations/Surgeries HX Hospitalizations: No HX of Surgeries: G TUBE PLACEMENT 1989 LEFT HIP SURGERY CHILD PLACEMENT VNS TEETH EXTRACTION EGD Any Problems With Anesthesia: Yes (TROUBLE WAKING UP) You/Your Family Experience Fever (Hyperthermia) With Anes: No Cholinesterase deficiency: No Cardiovascular Hx Chest Pain within Last 2 months: No Hx of Irregular Heartbeat and/or Afib: No Hx Heart Attack: No Hx Congestive Heart Failure: No Hx Rheumatic Fever: No Hx Hypertension: No Hx Internal Defibrillator: No Hx Pacemaker: No Hx Cardiac Catheterization: No Hx Cardiac Surgery/Stents/Etc.: No Hx Stress Test: No Hx Pain in Legs when Walking/Leg Cramps: No Respiratory Chronic Cough: No HX of Shortness of Breath: Yes (IMMOBILE) Hoarseness: No Hx Chronic Obstructive Pulmonary Disease (COPD): No Hx Asthma: No Hx Emphysema: No Hx Sleep Apnea: No CPAP: No BIPAP: No Hx Respiratory Tract Infection/Cold (presently): Yes (Patient has a slight cough currently. No fevers.) Do You Snore Loudly (louder than talking or can be heard): No Do You Often Feel Tired/ Fatigued/ Sleepy Dring Daytime?: No Has Anyone Observed You Stop Breathing During Sleep?: No Result (for STOP score): Negative Hx Smoking: No Smoking Status: Never smoker Gastrointestinal Controlled With Meds: Yes Hx Gastrointestinal Disorders: Yes (CONSTIPATION) Hx Gastrointestinal Bleed: No Hx Ulcer: No Hx Hiatal Hernia: No Difficulty Chewing/Swallowing: Yes (NO LIQUID BY MOUTH. PUREED FOODS) Special diet followed at home: Yes (G-tube/oral feeds to pudd) Hx Unplanned Weight Loss of 20#: No HX Unplanned Weight Gain of 20#: No Neurological Hx Seizures: Yes (WEEKLY SEIZURES) HX Syncope/Blackout Spells/Unconsciousness: No Hx Transient Ischemic Attacks (TIA): No Hx Multiple Sclerosis: No Hx Parkinson's Disease: No Hx Head/Neck Injury: Yes (HEAD INJURY AGE 4) Hx Headaches: No Hx Back Injury/Pain: Yes (FOLLOWS WITH CHIROPRACTOR FOR SPINE D/T BEING IN WHEELCHAIR) Recent Onset of Speech Difficulty: No (NONVERBAL) Restless Legs: No Does patient have nerve stimulator: No (REMOVED IN 2013) Blood Disorder Hx Leukemia: No Bleeding Tendencies: No Hx Deep Vein Thrombosis: No Hx High Cholesterol: No Blood Transmitted Disease: No Hx Hepatitis: No Hx Cirrhosis: No Hx Anemia: No Hx Blood Disorders: No Reproduction : No Genitourinary Hx Renal Disease: No Hx Dialysis: No Musculoskeletal Hx Arthritis: No Hx Rheumatoid Arthritis: No Hx Gout: No Recent Onset of an Orthopedic Problem: No Endocrine Hx Diabetes: No Thyroid Disease: No Hx Steroid Therapy: No Psycho/Social Hx Substance Use: No Hx Alcohol Use: No Hx Anxiety: No Hx Depression: No Mental Illness: No Hx Dementia: No Miscellaneous Hx Cancer: No Recent Exposure to Contagious Disease: No Hx of C-Diff: No Any Loose Teeth: No Allergies No Known Allergies Allergy (Verified 12/22/24 09:13) Discharge Is Pt Admitted From a [facility], or a Residential: No Who Could Help: parents After D/C, Where Do you Plan to Go: Return Home ROS Review of Systems ROS Unobtainable: due to mental condition Vital Signs Vital Signs Vital Signs: 12/22/24 09:14 12/22/24 09:14 12/22/24 09:58 Temperature 97.2 F L 97.2 F L Temperature Source Temporal Pulse Rate 84 84 Respiratory Rate 18 18 Respiratory Pattern Normal Pulse Ox 97 97 Oxygen Delivery Method Room Air Room Air Weight Weight: 136 lb Body Mass Index (BMI) 23.3 Physical Exam Const alert and no apparent distress HEENT normocephalic Eyes PERRL Chest inspection of chest normal Resp normal respiratory effort GI normal to inspection, nondistended, normoactive bowel sounds Assessment & Plan Assessment/Plan (1) Barretts esophagus: QUALIFIERS: Imstry's esophagus type: without dysplasia Qualified Code(s): K22.70 - Mistry's esophagus without dysplasia PLAN: Patient is here for surveillance endoscopy for Mistry's esophagus I explained endoscopy in detail to the patient. I explained the risks including but not limited to stroke or heart attack with anesthesia, perforation of the GI tract, bleeding, infection. I explained that any of these could necessitate further emergency surgery. The patient understands and all questions were answered sufficiently. The patient wishes to proceed with procedure. Tank Casey MD Pager: [facility] [address] [place] [address], [address] [place] [address] Office: Surgery Risks - Colonoscopy Risks Include but are not Limited To: Risks include but are not limited to: Bleeding, perforation requiring further surgery, inability to complete colonoscopy requiring barium enema.
--- NOTE | 2024-12-22 10:00 | EGD_PTH ---
PATIENT: AMITA DANIELS LOC: EN U#:[id number] AGE/SX: 39/M ROOM: RE12/22/[address]: Dr. Tank Casey MD : 1985 BED: DIS: 12/22/2024 SPEC #: [id number] RECD: 12/22/24 11:52 STATUS: NILSA MENDESRojelio #: [id number] KAILA: 12/22/24 10:[address]: Tank Casey DEPT: SURGICAL PATHOLOGY RECD BY: Rajani Steele ENTERED: 12/22/24 12:27 SP TYPE: EGD BIOPSY CHICA DR: Yogi Dumont, NUNO Tissues: Esophagus, NOS Procedures: Surgery Specimen Level IV HEADER OPERATION: EGD, biopsy, G-tube replacement PRE-OP DIAGNOSIS: Mistry's esophagus TISSUE SUBMITTED: Gastroesophageal junction biopsy MICROSCOPIC DIAGNOSIS Esophagus, GE junction, biopsy: * Mistry mucosa negative for dysplasia. MICROSCOPIC DESCRIPTION Slides are reviewed. GROSS DESCRIPTION Received in fixative is one container labeled with the patient's name and designated GE junction biopsy. The specimen consists of multiple irregular fragments of light yo soft tissue that in aggregate measure 0.9 x 0.3 x 0.2 cm. The specimen is totally submitted in one cassette. 12/22/2024 TC: CPT:81156
--- NOTE | 2024-12-22 10:26 | OP.CCLET_ITS ---
12/22/2024 Yogi Dumont Re : Upper GI endoscopy procedure for Jake Delcid Dear Tim This procedure was performed on Sunday, December 22, 2024. My impressions and recommendations are as follows: Impressions : - Esophageal mucosal changes secondary to established long-segment Mistry's disease. Biopsied. - Normal stomach. - Normal examined duodenum. - The PEG was removed because it was dislodged, and replaced with an externally removable PEG. Recommendations : - Discharge patient to home. - Resume previous diet. - Continue present medications. - Repeat upper endoscopy in 3 years for surveillance. My findings are described in the full procedure note, which is enclosed. If I can be of further assistance, please feel free to contact me at Doctor phone number(s): , Work: . Sincerely, Tank Casey MD 12/22/2024 10:25:42 AM This report has been signed electronically.
--- NOTE | 2024-12-22 10:26 | OP.EGD_ITS ---
Patient Name: Jake Delcid Procedure Date: 12/22/2024 10:06 AM Date of : 1985 Age: 39 Procedure: Upper GI endoscopy Indications: Surveillance for malignancy due to personal history of Mistry's esophagus Providers: Tank Casey MD Referring MD: Yogi Dumont Medicines: Propofol per Anesthesia Patient Profile: This is a 39 year old male. Refer to note in patient chart for documentation of history and physical. Complications: No immediate complications. Estimated blood loss: Minimal. Procedure: Pre-Anesthesia Assessment: - Prior to the procedure, a History and Physical was performed, and patient medications and allergies were reviewed. The patient's tolerance of previous anesthesia was also reviewed. The risks and benefits of the procedure and the sedation options and risks were discussed with the patient. All questions were answered, and informed consent was obtained. Prior Anticoagulants: The patient has taken no anticoagulant or antiplatelet agents. After reviewing the risks and benefits, the patient was deemed in satisfactory condition to undergo the procedure. After obtaining informed consent, the endoscope was passed under direct vision. Throughout the procedure, the patient's blood pressure, pulse, and oxygen saturations were monitored continuously. The Endoscope was introduced through the mouth, and advanced to the third part of duodenum. The upper GI endoscopy was accomplished without difficulty. The patient tolerated the procedure well. Scope In: 10:14:58 AM Scope Out: 10:20:33 AM Total Procedure Duration Time 0 hours 5 minutes 35 seconds Findings: There were esophageal mucosal changes secondary to established long-segment Mistry's disease present in the lower third of the esophagus. This was biopsied with a cold forceps for histology. The stomach was normal. The examined duodenum was normal. The PEG required removal because it was dislodged. The PEG was removed percutaneously. Removal was easily accomplished. An externally removable 18 Fr button gastrostomy tube was lubricated. The guide wire was passed through the existing G-tube port and snared endoscopically. The endoscope and snare were then removed, pulling the wire out through the mouth. The g-tube was passed over the guidewire through the mouth, into the stomach and out through the G-tube port. The bumper was attached to the gastrostomy tube. The feeding tube was then cut to an appropriate length. The final position of the gastrostomy tube was confirmed by relook endoscopy, and skin marking noted to be 4 cm at the external bumper. The final tension and compression of the abdominal wall by the PEG tube and external bumper were checked and revealed that the bumper was loose and not touching the skin and that the PEG balloon was loose and not touching the stomach. The tube was capped, and the tube site was cleaned and dressed. Impression: - Esophageal mucosal changes secondary to established long-segment Mistry's disease. Biopsied. - Normal stomach. - Normal examined duodenum. - The PEG was removed because it was dislodged, and replaced with an externally removable PEG. Recommendation: - Discharge patient to home. - Resume previous diet. - Continue present medications. - Repeat upper endoscopy in 3 years for surveillance. Procedure Code(s): --- Professional --- 86208, Esophagogastroduodenoscopy, flexible, transoral; with directed placement of percutaneous gastrostomy tube 11462, Esophagogastroduodenoscopy, flexible, transoral; with biopsy, single or multiple Diagnosis Code(s): --- Professional --- K22.70, Mistry's esophagus without dysplasia K94.23, Gastrostomy malfunction CPT copyright 2021 [employer]. All rights reserved. The codes documented in this report are preliminary and upon inside plant supervisor review may be revised to meet current compliance requirements. Tank Casey MD 12/22/2024 10:25:42 AM This report has been signed electronically. Number of Addenda: 0 Note Initiated On: 12/22/2024 10:06 AM
--- NOTE | 2024-12-22 10:31 | PCM.POST.ANE ---
Anesthesia: Postop Eval I Current Vital Signs Temperature: 97 F Pulse Rate: 74 Blood Pressure: 122/77 Respiratory Rate: 14 Pulse Ox: 98 Oxygen Delivery Method: Room Air Assessment Airway patent: Yes Spontaneous unlabored respirations: Yes Mental status: Awake nausea: No Vomiting: No Anesthesia Complication: No Fluid Hydration Crystalloid volume administer (ml): 10 Total IV fluid infused: 10 Progress Note Anesthesia document: Postop Eval 1 completed: Yes
--- NOTE | 2024-12-22 11:33 | POSTOPAN2_ITS ---
Anesthesia Postop Eval I Sum Postop Eval Completion status Anesthesia document: Postop Eval 1 completed: Yes Anesthesia Postop Eval I Summary Anesthesia Postop Eval I Summary: Anesthesia Postop Eval I: Assessment Summary Airway patent Yes 12/22/24 10:31 [email or web address] Spontaneous unlabored Yes 12/22/24 10:31 [email or web address] respirations Mental status Awake 12/22/24 10:31 [email or web address] nausea No 12/22/24 10:31 [email or web address] Vomiting No 12/22/24 10:31 [email or web address] Anesthesia Postop Eval I: Fluid Summary Crystalloid volume administer 10 12/22/24 10:31 [email or web address] (ml) Colloids volume administered ( ml) Blood Product volume administered (ml) Total IV fluid infused 10 12/22/24 10:31 [email or web address] Anesthesia Postop Eval I: Summary Notes Anesthesia Complication No 12/22/24 10:31 [email or web address] Anesthesia Complication Comment: Post-operative progress note Anesthesia: Postop Eval II Evaluation Mental status: Awake Pain Level: 0 nausea: No Vomiting: No
--- NOTE | 2024-12-22 11:33 | PCM.POSTANE2 ---
Anesthesia Postop Eval I Sum Postop Eval Completion status Anesthesia document: Postop Eval 1 completed: Yes Anesthesia Postop Eval I Summary Anesthesia Postop Eval I Summary: Anesthesia Postop Eval I: Assessment Summary Airway patent Yes 12/22/24 10:31 COMMUNITY [email or web address] Spontaneous unlabored Yes 12/22/24 10:31 COMMUNITY [email or web address] [email or web address] respirations Mental status Awake 12/22/24 10:31 COMMUNITY [email or web address] [email or web address] nausea No 12/22/24 10:31 COMMUNITY HEALTH [email or web address] Vomiting No 12/22/24 10:31 COMMUNITY [email or web address] [email or web address] Anesthesia Postop Eval I: Fluid Summary Crystalloid volume administer 10 12/22/24 10:31 COMMUNITY [email or web address] (ml) Colloids volume administered ( ml) Blood Product volume administered (ml) Total IV fluid infused 10 12/22/24 10:31 COMMUNITY [email or web address] Anesthesia Postop Eval I: Summary Notes Anesthesia Complication No 12/22/24 10:31 COMMUNITY [email or web address] Anesthesia Complication Comment: Post-operative progress note Anesthesia: Postop Eval II Evaluation Mental status: Awake Pain Level: 0 nausea: No Vomiting: No
--- NOTE | 2024-12-22 12:06 | SUR.PHASEII ---
1144 pt began bouncing in mele when being lowered to wheelchair. then pt began to shey head back and forth and bumped his upper lip on mele mechanism. lip bled. pressure applied. bleeding stopped. dr avendaño evaluated. parents declined for pt to be assessed at er. steri strips placed. wound well approxiamated. no furthur bleeding noted.
== END 2024-12-22 12:10 | disposition home or self-care (01) ==
LOC: EN 08:51 → AC 08:52
PROVIDERS: PCP Nurse Practitioner Family; Referring Provider Nurse Practitioner Family; Visit Provider Surgery
PROC: 0DJ08ZZ Inspection of Upper Intestinal Tract, Via Natural or Artificial Opening Endoscopic (ICD-10-PCS; CPT 43235; principal; 2024-12-22 09:55)
DX: K22.70 Barrett's esophagus without dysplasia (principal); K94.23 Gastrostomy malfunction; K21.9 Gastro-esophageal reflux disease without esophagitis; Z79.899 Other long term (current) drug therapy; Z96.649 Presence of unspecified artificial hip joint
CPT/HCPCS: 43239; 43246; 88305; A4216